=== PATIENT | male | born 1970 | race Caucasian/White ===

== ENCOUNTER 2024-01-21 15:42 | Outpatient (CLI) | payer BC, SELFPAY ==
[2024-01-21 19:26] LABS: Basophils Percent Auto 0.5 % (0.2-1.2); Eosinophils Absolute Auto 0.2 K/mm3 (0-0.3); Eosinophils Percent Auto 3.9 % (0-4.4); Hemoglobin 14.5 g/dL (14.0-18.0); Immature Granulocyte Absolute 0.01 K/mm3 (0.00-0.031); Immature Granulocyte Percent A 0.2 % (0-0.5); Lymphocytes Absolute Auto 1.66 K/mm3 (0.9-3.2); Lymphocytes Percent Auto 27.1 % (18.3-44.2); Mean Corpuscular HGB Conc 35.4 g/dl (32-36); Mean Corpuscular Hemoglobin 32.7 pg (26-34); Mean Corpuscular Volume 92.6 fl (80-100); Monocytes Absolute Auto 0.7 K/mm3 (0.1-0.6); Monocytes Percent Auto 10.6 % (2.6-8.5); Neutrophils Absolute Auto 3.5 K/mm3 (1.3-6.7); Neutrophils Percent Auto 57.7 % (45.5-73.1); Platelet Count Result 248 k/mm3 (150-375); Red Blood Count 4.43 M/mm3 (4.6-6.20); Red Cell Distribution Width 12.6 % (11.5-14.5); White Blood Count 6.1 K/mm3 (4.5-10.0)
[2024-01-21 20:16] LABS: Alanine Aminotransferase 31 U/L (6-50); Albumin Level 4.4 g/dL (3.5-5.1); Alkaline Phosphatase 83 U/L (38-126); Anion Gap 11 mmol/L (4-12); Aspartate Amino Transferase 30 U/L (17-59); Bilirubin,Total 0.7 mg/dL (0.2-1.3); Blood Urea Nitrogen 12 mg/dL (9-20); Calcium 9.4 mg/dL (8.4-10.2); Carbon Dioxide 23 mmol/L (22-30); Chloride 106 mmol/L (98-107); Estimated Glomerular Filt Rate > 60; Glucose 106 mg/dL (65-110); Potassium 3.6 mmol/L (3.4-5.0); Sodium 140 mmol/L (137-145)
[2024-01-22 15:49] LABS: HIV 1 RNA PCR NOT DETECTED (NOT DETECTED); HIV 1 RNA PCR NOT DETECTED copies/mL (NOT DETECTED)
[2024-01-24 11:48] LABS: Absolute CD4 Count 911 cells/uL (490-1740); Lymphocytes, Absolute 1787 cells/uL (850-3900); Percent CD4 Cells 51 % (30-61)
== END 2024-01-21 15:43 | disposition home or self-care (01) ==
LOC: ANHGOSHLAB 15:43
PROVIDERS: PCP Family Medicine; Visit Provider Family Medicine
DX: Z13.228 Encounter for screening for other metabolic disorders (principal); R53.83 Other fatigue; H93.90 Unspecified disorder of ear, unspecified ear; Z72.51 High risk heterosexual behavior
CPT/HCPCS: 36415; 80053; 85025; 86361; 87536